=== PATIENT | female | born 1950 | race Caucasian/White ===

== ENCOUNTER 2016-11-01 17:13 | Emergency (ER) | payer MEDICARE, OTHER, SELFPAY ==
[2016-11-01] MEDS ORDERED: ZYLOPRIM100 M1 PO (17:50)
[2016-11-01] MEDS ORDERED: XANAX1 M1 PO (17:50)
[2016-11-01] MEDS ORDERED: WELLBUTRIN SR150 M2 PO (17:50)
[2016-11-01] MEDS ORDERED: LASIX40 M1 PO (17:51)
[2016-11-01] MEDS ORDERED: NEURONTIN600 M1 PO (17:51)
[2016-11-01] MEDS ORDERED: CALCIUM 600 +1 EA21 PO (17:51)
[2016-11-01] MEDS ORDERED: CATAPRES0.2 M1 PO (17:51)
[2016-11-01] MEDS ORDERED: SYNTHROID88 MC1 PO (17:52)
[2016-11-01] MEDS ORDERED: GLYBURIDE5 M1 PO (17:52)
[2016-11-01] MEDS ORDERED: LIPITOR80 M1 PO (17:52)
[2016-11-01] MEDS ORDERED: COZAAR50 M1 PO (17:53)
[2016-11-01] MEDS ORDERED: MAGNESIUM OXID400 M1 PO (17:53)
[2016-11-01] MEDS ORDERED: GLUCOPHAGE XR500 M1 PO (17:53)
[2016-11-01] MEDS ORDERED: LOPRESSOR100 M1 PO (17:53)
[2016-11-01] MEDS ORDERED: OMEPRAZOLE40 M2 PO (17:54)
[2016-11-01] MEDS ORDERED: PAXIL40 M1 PO (17:54)
[2016-11-01 18:15] LABS: URINE APPEARANCE CLEAR; URINE BILIRUBIN NEGATIVE (NEG); URINE BLOOD NEGATIVE (NEG); URINE COLOR PALE YELLOW; URINE GLUCOSE (UA) NEGATIVE (NEG); URINE KETONE NEGATIVE (NEG); URINE LEUKOCYTE ESTERASE POSITIVE (NEG); URINE NITRITE NEGATIVE (NEG); URINE PROTEIN NEGATIVE (NEG)
[2016-11-01 18:16] LABS: BASO ABSOLUTE COUNT 0.1 tho/cmm (0.0-0.2); EOS % 2.8 % (0-7); EOSINOPHIL ABSOLUTE COUNT 0.2 tho/cmm (0.0-0.7); HCT-HEMATOCRIT 36.9 % (34.0-49.0); HGB-HEMOGLOBIN 12.2 gm/dl (12.0-15.5); IMMATURE GRANULOCYTES ABSOLUTE 0.03 tho/cmm (0-0.03); IMMATURE GRANULOCYTES PERCENT 0.5 % (0-0.3); LYMPH % 32.4 % (20-45); MCHC MEAN CORPUSCULAR HGB CONC 33.1 % (32.0-36.0); MCV (MEAN CELL VOLUME) 87.9 fl (82.0-96.0); MEAN PLATELET VOLUME 9.9 cmc (9.4-12.4); MONO % 5.6 % (0-12); MONOCYTE ABSOLUTE COUNT 0.3 tho/cmm (0.0-1.2); NEUTROPHIL ABSOLUTE COUNT 3.5 tho/cmm (1.6-8.0); NEUTROPHIL-AUTOMATED 3.5 tho/cmm (1.6-8.0); NEUTROPHILS % 57.7 % (40-80); PLATELET COUNT 232 tho/cmm (150-450); RED CELL DISTRIBUTION WIDTH 13.2 % (12.4-16.4); WHITE BLOOD COUNT 6.1 tho/cmm (4.0-10.0)
[2016-11-01 18:22] LABS: URINE EPITHELIAL CELLS RARE /[HPF] (0-10)
[2016-11-01 18:31] LABS: ANION GAP 12 mmol/L (0-20); BLOOD UREA NITROGEN 20 mg/dl (6-24); CALCIUM 8.6 mg/dl (8.5-10.5); CARBON DIOXIDE-VENOUS 27 mmol/L (22-32); CHLORIDE 106 mmol/l (96-110); CREATININE 1.01 mg/dl (0.50-1.10); GLUCOSE 179 mg/dL (70-110); MAGNESIUM 1.7 mg/dl (1.3-2.6); POTASSIUM 3.8 mmol/L (3.7-5.1); SODIUM 141 mmol/L (135-145); eGFR VALUE FOR BLACK 68 mL/Min
[2016-11-10] MEDS ORDERED: GLYBURIDE5 M1 PO (10:36)
[2016-11-10] MEDS ORDERED: TORSEMIDE100 M1 PO (10:37)
[2016-11-10] MEDS ORDERED: NORCO 5-325 TA1 EACH PO (10:38)
[2017-03-16] MEDS ORDERED: BREO ELLIPTA 21 EACH INH (15:41)
[2017-03-16] MEDS ORDERED: LASIX40 M1 PO (15:42)
[2017-03-16] MEDS ORDERED: ZESTRIL40 M2 PO (15:44)
[2017-03-16] MEDS ORDERED: METFORMIN HCL500 M3 PO (15:45)
[2017-03-16] MEDS ORDERED: ZOCOR80 M1 PO (15:47)
[2017-03-16] MEDS ORDERED: BENZONATATE200 M1 PO (16:31)
[2017-03-16] MEDS ORDERED: ZITHROMAX500 M2 PO (16:31)
[2017-03-16] MEDS ORDERED: AMARYL1 M1 PO (16:34)
[2017-03-16] MEDS ORDERED: CATAPRES0.1 M1 PO (16:35)
[2017-03-16] MEDS ORDERED: GLYBURIDE5 M1 PO (17:00)
[2017-03-16] MEDS ORDERED: VENTOLIN HFA18 G2 PO (17:52)
[2017-04-09] MEDS ORDERED: VENTOLIN HFA18 G2 INH (16:16)
[2017-04-09] MEDS ORDERED: ALBUTEROL2.5 MG/3 M NEB (16:16)
[2017-04-09] MEDS ORDERED: KETOCONAZOLE15 GM TP (16:25)
[2017-04-09] MEDS ORDERED: PROMETH-CODEIN 65 ML PO (17:32)
== END 2016-11-01 19:09 ==
LOC: EDMED 17:13
PROVIDERS: Emergency Medicine
DX: M79.1 Myalgia (principal); R53.1 Weakness; I11.0 Hypertensive heart disease with heart failure; E11.9 Type 2 diabetes mellitus without complications; J44.9 Chronic obstructive pulmonary disease, unspecified; F32.9 Major depressive disorder, single episode, unspecified; E78.5 Hyperlipidemia, unspecified; Z87.891 Personal history of nicotine dependence; E66.9 Obesity, unspecified; Z79.51 Long term (current) use of inhaled steroids; Z79.890 Hormone replacement therapy; Z79.899 Other long term (current) drug therapy

== ENCOUNTER 2016-11-10 14:10 | Inpatient (IN) | payer MEDICARE, OTHER ==
[~2016-11-10 14:10] MED LIST: CALCIUM 600 +1 EA21 PO; CATAPRES0.2 M1 PO; COZAAR50 M1 PO; GLUCOPHAGE XR500 M1 PO; GLYBURIDE5 M1 PO; LASIX40 M1 PO; LIPITOR80 M1 PO; LOPRESSOR100 M1 PO; MAGNESIUM OXID400 M1 PO; NEURONTIN600 M1 PO; NORCO 5-325 TA1 EACH PO; OMEPRAZOLE40 M2 PO; PAXIL40 M1 PO; SYNTHROID88 MC1 PO; TORSEMIDE100 M1 PO; WELLBUTRIN SR150 M2 PO; XANAX1 M1 PO; ZYLOPRIM100 M1 PO
[2016-11-10] MEDS ORDERED: ASPIRIN EC81 MG PO (15:02)
[2016-11-10] MEDS ORDERED: TYLENOL EXTRA500 M1 PO (15:02)
[2016-11-10 18:35] LABS: ALB/GLOB RATIO 1.2 (0.8-2.0); ALBUMIN 4.1 g/dl (3.5-5.0); ALKALINE PHOSPHATASE 130 U/L (33-138); ALT/SGPT 27 U/L (12-78); ANION GAP 13 mmol/L (0-20); AST/SGOT 24 U/L (10-40); BILIRUBIN,TOTAL 0.6 mg/dl (0-1.5); BLOOD UREA NITROGEN 78 mg/dl (6-24); CALCIUM 8.8 mg/dl (8.5-10.5); CARBON DIOXIDE-VENOUS 35 mmol/L (22-32); CHLORIDE 87 mmol/l (96-110); CREATININE 2.61 mg/dl (0.50-1.10); GLUCOSE 139 mg/dL (70-110); SODIUM 132 mmol/L (135-145); eGFR VALUE FOR BLACK 21 mL/Min
[2016-11-10 18:44] LABS: POTASSIUM 2.9 mmol/L (3.7-5.1)
[2016-11-11 05:21] LABS: BASO % 0.7 % (0-2); EOS % 2.2 % (0-7); EOSINOPHIL ABSOLUTE COUNT 0.1 tho/cmm (0.0-0.7); HCT-HEMATOCRIT 32.8 % (34.0-49.0); IMMATURE GRANULOCYTES ABSOLUTE 0.01 tho/cmm (0-0.03); IMMATURE GRANULOCYTES PERCENT 0.2 % (0-0.3); LYMPH % 36.5 % (20-45); LYMPH ABSOLUTE COUNT 1.6 tho/cmm (0.8-4.5); MCH (MEAN CORPUSCULAR HGB) 29.1 pg (28.0-32.0); MCHC MEAN CORPUSCULAR HGB CONC 33.5 % (32.0-36.0); MCV (MEAN CELL VOLUME) 86.8 fl (82.0-96.0); MEAN PLATELET VOLUME 10.5 cmc (9.4-12.4); MONO % 10.1 % (0-12); MONOCYTE ABSOLUTE COUNT 0.5 tho/cmm (0.0-1.2); NEUTROPHIL ABSOLUTE COUNT 2.3 tho/cmm (1.6-8.0); NEUTROPHIL-AUTOMATED 2.3 tho/cmm (1.6-8.0); NEUTROPHILS % 50.3 % (40-80); PLATELET COUNT 183 tho/cmm (150-450); RED BLOOD COUNT 3.78 mil/cmm (4.00-5.20); RED CELL DISTRIBUTION WIDTH 13.7 % (12.4-16.4); WHITE BLOOD COUNT 4.5 tho/cmm (4.0-10.0)
[2016-11-11 05:30] LABS: BLOOD UREA NITROGEN 74 mg/dl (6-24); CALCIUM 8.3 mg/dl (8.5-10.5); CARBON DIOXIDE-VENOUS 33 mmol/L (22-32); CHLORIDE 94 mmol/l (96-110); CREATININE 2.11 mg/dl (0.50-1.10); SODIUM 136 mmol/L (135-145); eGFR VALUE FOR BLACK 28 mL/Min
[2016-11-11 05:47] LABS: ANION GAP 12 mmol/L (0-20); GLUCOSE 216 mg/dL (70-110); POTASSIUM 2.8 mmol/L (3.7-5.1)
[2016-11-11 17:26] LABS: URINE BILIRUBIN NEGATIVE (NEG); URINE BLOOD SMALL (NEG); URINE GLUCOSE (UA) NEGATIVE (NEG); URINE KETONE NEGATIVE (NEG); URINE LEUKOCYTE ESTERASE POSITIVE (NEG); URINE NITRITE NEGATIVE (NEG); URINE PROTEIN NEGATIVE (NEG); URINE SPECIFIC GRAVITY 1.015 (1.003-1.030)
[2016-11-11 17:44] LABS: URINE CREATININE-RANDOM 89 mg/dl (30-125); URINE SODIUM-RANDOM 10 mmol/L (20-110)
[2016-11-11 17:48] LABS: URINE CHLORIDE RANDOM <10 mmol/L (55-125); URINE POTASSIUM RANDOM 36 mmol/L (12-62)
[2016-11-11 18:11] LABS: URINE APPEARANCE SL CLOUDY; URINE COLOR PALE YELLOW
[2016-11-11 18:17] LABS: URINE EPITHELIAL CELLS 0-5 /[HPF] (0-10); URINE RBC 0-1 /[HPF] (0-5)
[2016-11-12 06:18] LABS: ANION GAP 10 mmol/L (0-20); BLOOD UREA NITROGEN 61 mg/dl (6-24); CALCIUM 8.7 mg/dl (8.5-10.5); CARBON DIOXIDE-VENOUS 36 mmol/L (22-32); CHLORIDE 99 mmol/l (96-110); CREATININE 1.76 mg/dl (0.50-1.10); GLUCOSE 149 mg/dL (70-110); MAGNESIUM 2.3 mg/dl (1.8-2.6); POTASSIUM 3.4 mmol/L (3.7-5.1); SODIUM 142 mmol/L (135-145); eGFR VALUE FOR BLACK 35 mL/Min
[2016-11-12] MEDS ORDERED: POTASSIUM CHLO20 ME3 PO (11:10)
[2016-11-12] MEDS ORDERED: DEMADEX20 M1 PO (11:32)
--- NOTE | 2016-11-12 12:14 | NUR ---
[facility] DISCHARGE TEACHING-TAUGHT PATIENT DISMISSAL INSTRUCTIONS REVIEWING ACTIVITY,DIET,FOLLOWUP APPTS, AND MEDICATIONS AND THE CHANGES AND DISCONTINUATION OF SOME OF THEM. PATIENT WAS ABLE TO DO TEACHBACK AND HAD NO FURTHER QUESTIONS OR CONCERNS.
[2017-03-16] MEDS ORDERED: BREO ELLIPTA 21 EACH INH (15:41)
[2017-03-16] MEDS ORDERED: LASIX40 M1 PO (15:42)
[2017-03-16] MEDS ORDERED: ZESTRIL40 M2 PO (15:44)
[2017-03-16] MEDS ORDERED: METFORMIN HCL500 M3 PO (15:45)
[2017-03-16] MEDS ORDERED: ZOCOR80 M1 PO (15:47)
[2017-03-16] MEDS ORDERED: ZITHROMAX500 M2 PO (16:31)
[2017-03-16] MEDS ORDERED: BENZONATATE200 M1 PO (16:31)
[2017-03-16] MEDS ORDERED: AMARYL1 M1 PO (16:34)
[2017-03-16] MEDS ORDERED: CATAPRES0.1 M1 PO (16:35)
[2017-03-16] MEDS ORDERED: GLYBURIDE5 M1 PO (17:00)
[2017-03-16] MEDS ORDERED: VENTOLIN HFA18 G2 PO (17:52)
[2017-04-09] MEDS ORDERED: ALBUTEROL2.5 MG/3 M NEB (16:16)
[2017-04-09] MEDS ORDERED: VENTOLIN HFA18 G2 INH (16:16)
[2017-04-09] MEDS ORDERED: KETOCONAZOLE15 GM TP (16:25)
[2017-04-09] MEDS ORDERED: PROMETH-CODEIN 65 ML PO (17:32)
== END 2016-11-12 12:45 | DRG 683 ==
LOC: 5WD 14:10
PROVIDERS: Internal Medicine Critical Care Medicine; Internal Medicine Nephrology; ADMIT Family Medicine
PROC: 5A09357 Assistance with Respiratory Ventilation, Less than 24 Consecutive Hours, Continuous Positive Airway Pressure (ICD-10-PCS; principal; 2016-11-11)
DX: N17.9 Acute kidney failure, unspecified (principal); Z68.42 Body mass index [BMI] 45.0-49.9, adult; I13.0 Hypertensive heart and chronic kidney disease with heart failure and stage 1 through stage 4 chronic kidney disease, or unspecified chronic kidney disease; E11.22 Type 2 diabetes mellitus with diabetic chronic kidney disease; I50.32 Chronic diastolic (congestive) heart failure; E87.6 Hypokalemia; E11.40 Type 2 diabetes mellitus with diabetic neuropathy, unspecified; G89.29 Other chronic pain; E03.9 Hypothyroidism, unspecified; I10 Essential (primary) hypertension; M10.9 Gout, unspecified; N18.3 Chronic kidney disease, stage 3 (moderate); Z79.84 Long term (current) use of oral hypoglycemic drugs; Z87.891 Personal history of nicotine dependence; Z88.1 Allergy status to other antibiotic agents; Z88.2 Allergy status to sulfonamides; F32.9 Major depressive disorder, single episode, unspecified; Z79.82 Long term (current) use of aspirin; R32 Unspecified urinary incontinence; Z66 Do not resuscitate; I34.0 Nonrheumatic mitral (valve) insufficiency; E66.9 Obesity, unspecified
CPT/HCPCS: J1650; J1815; J7030